=== PATIENT | female | born 1950 | race Caucasian/White ===

== ENCOUNTER 2017-07-02 07:24 | Day surgery (SDC) | payer OTHER ==
[~2017-07-02] VITALS: Ht 161.3 cm; Wt 79.6 kg
[~2017-07-02 07:24] MED LIST: SODIUM CHLORIDE 0.9% 1,000 ML IV ONE
[2017-07-02] MEDS ORDERED: LIDOCAINE HCL 2% 30 ML JELLY TP ONE (07:25)
[2017-07-02] MEDS ORDERED: LIDOCAINE HCL 4% 50 ML SOLUTION TP ONE (07:25)
[2017-07-02] MEDS ORDERED: BENZOCAINE 20% 50 MCG/SPRAY 57 GM TP ONE (07:25)
[2017-07-02] MEDS ORDERED: SODIUM CHLORIDE 0.9% 1,000 ML IV ONE (07:30)
[2017-07-02] MEDS ORDERED: DSS100 PO (07:50)
[2017-07-02] MEDS ORDERED: BUDE10.2 IH (07:50)
[2017-07-02] MEDS ORDERED: ATOR20TA86 PO (07:50)
[2017-07-02] MEDS ORDERED: VITAD1000 PO (07:50)
[2017-07-02] MEDS ORDERED: ALBU8.5H8 IH (07:50)
[2017-07-02] MEDS ORDERED: MIDAZOLAM HCL 2 MG/2 ML VIAL ONE (07:57)
[2017-07-02] MEDS ORDERED: FentaNYL CITRATE-PF 100 MCG/2 ML VIAL ONE (07:57)
[2017-07-02] MEDS ORDERED: MethylPREDNISolone SOD SUCC 125 MG/2 ML VIAL IVP ONE (09:00)
[2017-07-02] MEDS ORDERED: MethylPREDNISolone SOD SUCC 125 MG/2 ML VIAL ONE (09:37)
[2017-07-02] MEDS ORDERED: OXYGEN THERAPY IH SCH (20:00)
== END 2017-07-02 10:30 | disposition home or self-care (01) ==
LOC: SURGERY 07:24
PROVIDERS: ATTEND Internal Medicine Critical Care Medicine
DX: J38.4 Edema of larynx (principal); B37.0 Candidal stomatitis; J18.9 Pneumonia, unspecified organism; E66.3 Overweight; Z90.710 Acquired absence of both cervix and uterus; Z87.448 Personal history of other diseases of urinary system
CPT/HCPCS: 31623; 31624; 71010; 87015 ×2; 87070; 87101; 87205; 87220; 88108; 88312; J2250; J2930; J3010; J7030

== ENCOUNTER 2019-12-08 06:40 | Day surgery (SDC) | payer OTHER ==
[~2019-12-08] VITALS: Ht 160 cm; Wt 74.1 kg
[~2019-12-08 06:40] MED LIST changes: +ALBU8.5H8 IH; +ATOR20TA86 PO; +BUDE10.2 IH; +CHOL100018 PO; +DSS100 PO; +SODIUM CHLORIDE 0.9% 1,000 ML ONE
[2019-12-08] MEDS ORDERED: ALBUTEROL SULFATE 2.5 MG/0.5 ML NEB SOLUTION NEB ONE (06:41)
[2019-12-08] MEDS ORDERED: BENZOCAINE 20% 50 MCG/SPRAY 57 GM TP ONE (06:41)
[2019-12-08] MEDS ORDERED: LIDOCAINE 2% 30 ML JELLY TP ONE (06:41)
[2019-12-08] MEDS ORDERED: LIDOCAINE 4% 50 ML SOLUTION TP ONE (06:41)
[2019-12-08] MEDS ORDERED: MIDAZOLAM HCL 2 MG/2 ML VIAL ONE (07:18)
[2019-12-08] MEDS ORDERED: FentaNYL CITRATE-PF 100 MCG/2 ML VIAL ONE (07:18)
[2019-12-08] MEDS ORDERED: MethylPREDNISolone SOD SUCC 125 MG/2 ML VIAL ONE (07:55)
[2019-12-08] MEDS ORDERED: MethylPREDNISolone SOD SUCC 125 MG/2 ML VIAL IVP ONE (08:30)
[2019-12-08] MEDS ORDERED: OXYGEN THERAPY IH SCH (20:00)
== END 2019-12-08 10:15 | disposition home or self-care (01) ==
LOC: SURGERY 06:40
PROVIDERS: ATTEND Internal Medicine Critical Care Medicine
DX: R05 Cough (principal); J84.9 Interstitial pulmonary disease, unspecified; J98.4 Other disorders of lung; J34.89 Other specified disorders of nose and nasal sinuses; J98.8 Other specified respiratory disorders; J38.4 Edema of larynx; B37.0 Candidal stomatitis; E78.00 Pure hypercholesterolemia, unspecified; J45.909 Unspecified asthma, uncomplicated; Z90.710 Acquired absence of both cervix and uterus; Z98.890 Other specified postprocedural states; Z79.899 Other long term (current) drug therapy
CPT/HCPCS: 31623; 31624; 71045; 87015; 87070; 87101; 87205; 87206; 87220; 88108; 88312; J2250; J2930; J3010; J7030

== ENCOUNTER 2020-09-04 06:48 | Day surgery (SDC) | payer OTHER ==
[2020-09-02 12:34] LABS: COVID AG,FIA SOURCE NASOPHARYNGEAL
[~2020-09-04] VITALS: Ht 162.6 cm; Wt 77.7 kg
[~2020-09-04 06:48] MED LIST changes: +ASCO500T20 PO; -ATOR20TA86 PO; +ATOR40TA71 PO; +AUD IH; +BACL20TA PO; -CHOL100018 PO; +D-ME473S53 PO; +DOXY100C2 PO; +FAMO40TA7 PO; +FLUT16H NASAL; +MIRA50TA PO; +MONT10TA97 PO; +PRED10 PO; -SODIUM CHLORIDE 0.9% 1,000 ML ONE
[2020-09-04] MEDS ORDERED: SODIUM CHLORIDE 0.9% 1,000 ML ONE (07:04)
[2020-09-04] MEDS ORDERED: MIDAZOLAM HCL 2 MG/2 ML VIAL ONE (08:02)
[2020-09-04] MEDS ORDERED: FentaNYL CITRATE PF 100 MCG/2 ML VIAL ONE (08:03)
[2020-09-04] MEDS ORDERED: MethylPREDNISolone SOD SUCC 125 MG/2 ML VIAL IVP ONE (09:15)
[2020-09-04] MEDS ORDERED: MethylPREDNISolone SOD SUCC 125 MG/2 ML VIAL ONE (09:39)
[2020-09-04] MEDS ORDERED: OXYGEN THERAPY IH SCH (20:00)
== END 2020-09-04 10:50 | disposition home or self-care (01) ==
LOC: SURGERY 06:48
PROVIDERS: ATTEND Internal Medicine Critical Care Medicine
DX: J38.4 Edema of larynx (principal); B37.0 Candidal stomatitis; E78.00 Pure hypercholesterolemia, unspecified; E78.5 Hyperlipidemia, unspecified; I10 Essential (primary) hypertension; Z98.890 Other specified postprocedural states; Z90.710 Acquired absence of both cervix and uterus
CPT/HCPCS: 31623; 31624; 71045; 87015; 87070; 87101; 87205; 87206; 87220; 87426; 88184; 88185; 93005; C9803; J2250; J2930; J3010; J7030; 88108; 88312